=== PATIENT | male | born 1935 | race Caucasian/White ===

== ENCOUNTER 2021-05-04 18:13 | Observation (INO) ==
[2021-05-04] MEDS ORDERED: TXA 10% Non-IV Routes 100 MG/ML VIAL TOP ONE ×2 (19:51→22:17)
--- NOTE | 2021-05-04 19:55 | Emergency Department Note ---
Impression & Plan Rectal bleeding, Coagulopathy, Anal tear ED Provider Note NAME: Nancy SCHWARTZ AGE: 86 SEX: M : 1935 ARRIVES VIA: Walk-In INFORMANT: [Patient] ED PROVIDER(S): [Jefferson Arroyo MD] CHIEF COMPLAINT: Rectal bleeding HISTORY OF PRESENT ILLNESS: The patient is an 86-year-old male who presents to the ED with bright red rectal bleeding since this morning at around 1130. He has had just over 8 hours of bleeding. The patient states that he had a bowel movement and on the bowel movement, there was a streak of blood. Afterwards, he has had this bleeding. He has bloodied several of his underwear. He is not lightheaded, he is not short of breath, he is not weak. He does take Xarelto and, he took his dose this morning before all this began. He takes Xarelto once a day. He has no history of previous rectal bleeding. REVIEW OF SYSTEMS: See HPI for pertinent positives and negatives. A total of 6 systems were reviewed and were otherwise negative. PMHx/PSHx: See Below SOCIAL HISTORY: See Below. PHYSICAL EXAM: GENERAL: Patient is in no acute distress. ABDOMEN: Soft, nontender, bowel sounds positive, no hernias, no peritonitis. EXTREMITIES: No cyanosis, mild bilateral pedal edema, full range of motion of all the joints without pain or difficulty, no signs for acute trauma. NEUROLOGIC: Oriented x 3, no acute motor or sensory deficits, no focal weakness. Rectal: The patient has an anal tear at around the 2 o'clock position. This is oozing bright red blood. DIFFERENTIAL DIAGNOSIS: Coagulopathy, anemia, hemorrhoid, anal tear, polyp, gastritis, ulcer, diverticular bleeding, among others. EMERGENCY DEPARTMENT COURSE/PROCEDURES: Laceration repair: This procedure was performed by me. The wound was prepped and draped in sterile fashion. The area was anesthetized with lidocaine. Using the best sterile technique we could achieve given the location of the injury, the wound was closed. There were no complications. 4 x 4's were placed as packing to help with bleeding. The patient tolerated the procedure well. Number of sutures: 1 MEDICAL DECISION MAKING: The patient presents with rectal bleeding. On exam, he had an obvious anal tear at around the 2 o'clock position. This area was continually bleeding. I did attempt to stop the bleeding with TXA. TXA packing was attempted twice but, the bleeding continued. I talked to the patient about trying a suture in the area of the anal tear, he agreed. This procedure was performed as above. Despite the suture, the bleeding continued. At this point, I do think the patient would be best served with a hospital stay and observation. Basically, we need to wait until his Xarelto wears off. I do not feel safe with discharge home. I did apply some packing to the area to prevent any heavier bleeding. As long as the packing is in place, as long as he is not moving, he does well. Any movement or any removal of the packing causes him to rebleed. I did order some baseline laboratory testing, this is pending. A saline lock was placed. A Covid test was ordered and is pending. I did speak with case management, the on-call hospitalist was consulted. Past Med/Surg History Medical History (Updated 05/04/21 @ 23:46 by Jefferson Arroyo MD) Abnormal gait Blood clot in vein (~2012) BPH loc w/o ur obs/LUTS BPPV (benign paroxysmal positional vertigo) CVA (cerebral vascular accident) (~2012) H/O nonmelanoma skin cancer Hearing loss in left ear (~1988) HTN (hypertension) TMJ (temporomandibular joint syndrome) Surgical History History of appendectomy History of cataract surgery both eyes History of foot surgery left foot - heal spars History of repair of right rotator cuff Family History Father Cancer Mother Heart disease Brother Gallbladder disease Other Family history non-contributory Denies family history of Ovarian cancer Prostate cancer Diabetes Myocardial infarction Breast cancer Lung cancer Colorectal cancer Hypertension Stroke Social History Smoking Status: Never smoker Second Hand Exposure: No; Hx Alcohol Use: Yes Alcohol type: hard liquor Alcohol Intake Frequency Comment: everyday Hx Substance Use: No Preferred Language: Argentine Communication Ability: Effective Visual Impairment: Limited Hearing Ability: Hard of Hearing Appliance Servicer Required: No marital status: Current Living Situation: Spouse current occupational status: retired How many Children do You have: 3 Feels Safe at Home: Yes Childhood Exposure to Second-Hand Smoke: Yes caffeine: Yes (drinks tea and soda ) Dental Care, Regularly: Yes Physical Activity Frequency: Daily Physical Activity Frequency Comment: walks daily Seatbelt Use: always Sunscreen Use: No Allergies Allergies Allergy/AdvReac Type Severity Reaction Status Date / Time No Known Allergies Allergy Verified 05/04/21 20:15 Home Meds Home Medications Medication Instructions Recorded Confirmed aspirin 81 mg tablet,delayed 81 mg PO QAM 01/15/19 05/04/21 release (Aspirin Low Dose) Previous Rx's Medication Instructions Recorded rivaroxaban 20 mg tablet (Xarelto) 20 mg PO QAM #90 tab 01/13/21 tamsulosin 0.4 mg capsule 0.4 mg PO QAM #90 cap 01/16/21 atorvastatin 10 mg tablet (Lipitor) 10 mg PO QAM #90 tab 01/28/21 omeprazole 20 mg capsule,delayed 20 mg PO QAM #30 cap 01/28/21 release lisinopril 30 mg tablet 30 mg PO DAILY #90 tab 02/26/21 meclizine 12.5 mg tablet 12.5 mg PO TID PRN #20 tab 04/01/21 Results & Data (ED) Vital Signs Vital Signs - 24 hr 05/04/21 18:24 05/04/21 21:03 Temperature 36.5 C Temperature Source Temporal Artery Scan Pulse Rate 77 Pulse Rate [Apical] 60 Respiratory Rate 18 20 Respiratory Effort / Characteristics Non-Labored Respiratory Depth Normal Blood Pressure 165/85 H Blood Pressure [Right Arm] 166/102 H Blood Pressure Mean 111 Blood Pressure Mean [Right Arm] 123 Pulse Oximetry 96 98 Oxygen Delivery Method Room Air Room Air Sepsis Recent Fever Within 48 Hours No Sepsis New/Unexplained Change in Mental Status No Sepsis Action Taken by Nursing No Action Required Home Medications Current Medication List: was personally reviewed by me Administered Medications Discontinued Medications Lidocaine HCl (Xylocaine 1%/Sod Bicarb 20 Ml Vial) 20 ml INFIL NOW ONE Stop: 05/04/21 21:48 Last Admin: 05/04/21 22:26 Dose: 20 ml Documented by: [id number] Tranexamic Acid (Txa 10% Non-Iv Routes 100 Mg/Ml Vial) 1,000 mg TOP ONE ONE Stop: 05/04/21 19:52 Last Admin: 05/04/21 20:07 Dose: 1,000 mg Documented by: [id number] Tranexamic Acid (Txa 10% Non-Iv Routes 100 Mg/Ml Vial) 1,000 mg TOP ONE ONE Stop: 05/04/21 22:18 Last Admin: 05/04/21 22:26 Dose: 1,000 mg Documented by: [id number] Discharge Plan Visit Data Chief Complaint: Rectal Bleed Stated Complaint: BLEEDING FROM RECTUM SINCE THIS MORNING ED Provider: Jefferson Arroyo Discharge Problem: Rectal bleeding, Coagulopathy, Anal tear Patient Disposition: Admitted As Inpatient Condition: Good Forms Stand Alone Forms: [facility] Prescriptions Prescriptions: No Action Xarelto 20 mg tablet 20 mg PO QAM Qty: 90 RF: 3 tamsulosin 0.4 mg capsule 0.4 mg PO QAM Qty: 90 RF: 3 lisinopril 30 mg tablet 30 mg PO DAILY Qty: 90 RF: 3 atorvastatin [Lipitor] 10 mg tablet 10 mg PO QAM Qty: 90 RF: 3 omeprazole 20 mg capsule,delayed release(DR/EC) 20 mg PO QAM Qty: 30 RF: 5 aspirin [Aspirin Low Dose] 81 mg Tablet,Delayed Release (Dr/Ec) 81 mg PO QAM RF: 0 meclizine 12.5 mg tablet 12.5 mg PO TID PRN (Reason: dizziness) Qty: 20 RF: 0 Referrals Referrals: Alex Frost DO [Primary Care Provider] -
[2021-05-04] MEDS ORDERED: XYLOCAINE 1%/SOD BICARB 20 ML VIAL INFIL ONE (21:47)
--- NOTE | 2021-05-04 23:18 | History & Physical Report ---
Date of Service May 04, 2021 Assessment & Plan (1) Anal tear: Plan: Patient is an 86 year old male with PMHx CVA 2012, GERD, HTN who presents with history of rectal bleed after a large bowel movement earlier this morning that has refused to stop, patient notes that he is on eliquis and ASA daily for history of CVA. Anal Tear/Fissure with bleed -Multiple attempts at stopping bleed in ED -While pressure held, bleed appears well controlled -Will hold ASA and Eliquis at this time -Continue pressure on the tear -Colace BID sched ordered - recommend continuing some form of bowel regiment outpatient -Once bleeding has resolved, can consider topical nifedipine or nitroglycerin -Consider sitz baths or home bidets as well to prevent future tears -Hgb stable 15.4 GERD -Continue omeprazole HTN -Continue Lisinopril Dispo: Med/Surg for management of bleed FEN: Regular diet DVT: Holding anticoagulation eliquis at this time Code: Full History of Present Illness Chief Complaint: rectal bleeding Primary Care Provider: Alex Frost, Patient is an 86 year old male with PMHx CVA 2012, GERD, HTN who presents with history of rectal bleed after a large bowel movement earlier this morning that has refused to stop, patient notes that he is on eliquis and ASA daily for history of CVA. Patient notes that this morning around 11:30AM he had a large bowel movement and has been noticing bleeding from his rectum since. He notes that he has gone through roughly 6 pairs of underwear due to the bleed despite pressure. Patient presented to the ED where pressure was held, pressure with TXA was conducted, and a stitch with Vicryl was placed for a small tear in the 2 o'clock position of the anal mucosa with continued bleed. When pressure is placed the bleed pauses, however, resumes again once the patient moves around. Currently patient notes that he has no symptoms other than the bleeding. He denies any NVD, shortness of breath, chest pain, chest pressure, abdominal pain, headache, dizziness. Med Hx: CVA, GERD, HTN Surg Hx Appendectomy, Cataract Soc Hx: Denies tobacco or illicit drug use. Notes drinking 3oz of vodka daily (very specific about sipping and not taking a shot) Allergies Allergy/AdvReac Type Severity Reaction Status Date / Time No Known Allergies Allergy Verified 05/07/21 11:07 Home Medications Medication Instructions Recorded Confirmed Type aspirin 81 mg tablet,delayed 81 mg PO QAM 01/15/19 05/07/21 History release (Aspirin Low Dose) rivaroxaban 20 mg tablet (Xarelto) 20 mg PO QAM #90 tab 01/13/21 05/07/21 Rx tamsulosin 0.4 mg capsule 0.4 mg PO QAM #90 cap 01/16/21 05/07/21 Rx atorvastatin 10 mg tablet (Lipitor) 10 mg PO QAM #90 tab 01/28/21 05/07/21 Rx omeprazole 20 mg capsule,delayed 20 mg PO QAM #30 cap 01/28/21 05/07/21 Rx release lisinopril 30 mg tablet 30 mg PO DAILY #90 tab 02/26/21 05/07/21 Rx meclizine 12.5 mg tablet 12.5 mg PO TID PRN #20 tab 04/01/21 05/07/21 Rx docusate sodium 100 mg capsule 100 mg PO BID #60 cap 05/05/21 05/07/21 Rx Past Med/Surg History Medical History Abnormal gait Blood clot in vein (~2012) BPH loc w/o ur obs/LUTS BPPV (benign paroxysmal positional vertigo) CVA (cerebral vascular accident) (~2012) H/O nonmelanoma skin cancer Hearing loss in left ear (~1988) HTN (hypertension) TMJ (temporomandibular joint syndrome) Surgical History History of appendectomy History of cataract surgery both eyes History of foot surgery left foot - heal spars History of repair of right rotator cuff Family History Father Cancer Mother Heart disease Brother Gallbladder disease Other Family history non-contributory Denies family history of Ovarian cancer Prostate cancer Diabetes Myocardial infarction Breast cancer Lung cancer Colorectal cancer Hypertension Stroke Social History Smoking Status: Never smoker Second Hand Exposure: No; Hx Alcohol Use: Yes Alcohol type: hard liquor Alcohol Intake Frequency Comment: everyday Hx Substance Use: No Preferred Language: Indonesian Communication Ability: Effective Visual Impairment: Limited Hearing Ability: Hard of Hearing Field Operator Required: No Beliefs That Will Affect Care: None marital status: Current Living Situation: Spouse current occupational status: retired How many Children do You have: 3 Feels Safe at Home: Yes Childhood Exposure to Second-Hand Smoke: Yes caffeine: Yes (drinks tea and soda ) Dental Care, Regularly: Yes Physical Activity Frequency: Daily Physical Activity Frequency Comment: walks daily Seatbelt Use: always Sunscreen Use: No Assistive Devices: None Review of Systems Review of Systems: All systems reviewed & are unremarkable except as noted in Subjective Physical Exam Constitutional: well developed, well nourished and cooperative; no acute distress Eyes: PERRL, conjunctivae normal, anicteric sclerae ENMT: external ear and nose normal, oropharynx normal Neck: trachea midline, no thyromegaly Respiratory: normal respiratory effort; no cough Auscultation: lungs clear to auscultation bilaterally; no diminished lung sounds, no crackles, no rales and no wheezes Cardiovascular: Rate/Rhythm: regular rate and regular rhythm Heart Sounds: normal S1 and normal S2; no murmur and no cardiac rub Vessels: no JVD Extremities: no calf tenderness and no edema Gastrointestinal (Abdomen): Inspection/Auscultation: abdomen normal to inspection and normal bowel sounds; abdomen not distended Percussi on/Palpation: abdomen soft; abdomen nontender, no guarding and abdomen not rigid Musculoskeletal: no cyanosis or clubbing, extremities motor strength 5/5 Head/Neck/Chest: normocephalic and head atraumatic Skin: no rashes, warm and dry Psychiatric: A+Ox3, euthymic affect Lymphatic: Small tear in the anal mucosa at the 2 o'clock position with gentle ooze of bright red blood Results & Data Results & Data ([facility]) Vital Signs (Past 12 Hours) Vital Signs Temp Pulse Pulse Resp BP BP Pulse Ox 05/04/21 21:03 60 20 166/102 H 98 05/04/21 18:24 36.5 C 77 18 165/85 H 96 Supervising Physician Co-Signing Physician Notes Attending addendum: I have physically seen this patient, have supervised the medical residents activities, and agree with the H&P unless as otherwise noted. Assessment and Plan: Anal tear- Rectal bleeding on Xarelto Unsuccessful attempts by ED to control bleeding Hold aspirin and Eliquis Continue local pressure on tear Colace twice daily N.p.o. except medications Serial H&H's Surgical consult if persists GERD- Continue omeprazole/pantoprazole Remaining orders and notations as noted Resident Activity Tracking Resident Involvement: Resident Care Provided Care Provided: Adult Hospital Medicine
[2021-05-04 23:52] LABS: Hematocrit (blood only) 45.2 % (42-52); Hemoglobin 15.4 g/dL (14.0-18.0); Mean Corpuscular Hemoglobin 31.6 pg (25-34); Mean Corpuscular Hgb Conc 34.1 g/dL (32-36); Mean Corpuscular Volume 92.8 fL (80-100); Mean Platelet Volume 9.6 fL (7.4-10.4); Platelet Count 164 K/uL (130-400); RDW Coefficient of Variation 13.6 % (11.5-14.5); RDW Standard Deviation 46.2 fL (36.4-46.3); Red Blood Count 4.87 M/uL (4.7-6.1); White Blood Count 7.25 K/uL (4.8-10.8)
[2021-05-05 00:08] LABS: INR 1.1 (0.9-1.1); Partial Thromboplastin Ratio 1.2; Partial Thromboplastin Time 32.3 Seconds (21.0-31.0); Prothrombin Time 11.5 Seconds (9.0-12.0)
[2021-05-05 00:14] LABS: BUN Creatinine Ratio 11.8 (10-20); Calcium 8.5 mg/dl (8.5-10.1); Creatinine Clr Calc Pharmacy 37.8 ml/min; Est GFR (African American) 54.7 ml/min; Est GFR (Non-African American) 47.2 ml/min; Potassium 3.7 mmol/L (3.5-5.1)
[2021-05-05 06:06] LABS: Basophils # (auto) 0.04 K/uL (0-0.2); Basophils % (auto) 0.6 %; Eosinophils # (auto) 0.24 K/uL (0-0.5); Eosinophils % (auto) 3.8 %; Hematocrit (blood only) 38.4 % (42-52); Immature Granulocytes # (auto) 0.01 K/uL (0.00-0.02); Immature Granulocytes % (auto) 0.2 %; Lymphocytes # (auto) 1.48 K/uL (1.2-3.4); Lymphocytes % (auto) 23.6 %; Mean Corpuscular Hemoglobin 31.2 pg (25-34); Mean Corpuscular Hgb Conc 33.9 g/dL (32-36); Mean Corpuscular Volume 92.1 fL (80-100); Mean Platelet Volume 9.2 fL (7.4-10.4); Monocytes % (auto) 11.2 %; Neutrophils % (auto) 60.6 %; Platelet Count 134 K/uL (130-400); RDW Coefficient of Variation 13.7 % (11.5-14.5); RDW Standard Deviation 46.1 fL (36.4-46.3); Red Blood Count 4.17 M/uL (4.7-6.1); White Blood Count 6.27 K/uL (4.8-10.8)
[2021-05-05] MEDS ORDERED: TAMSULOSIN HCL 0.4 MG CAP PO SCH (09:00)
[2021-05-05] MEDS ORDERED: PANTOprazole 40 MG TAB PO SCH (09:00)
[2021-05-05] MEDS ORDERED: ATORVASTATIN 10 MG TAB PO SCH (09:00)
[2021-05-05] MEDS ORDERED: DOCUSATE SODIUM 100 MG CAP PO SCH (09:00)
[2021-05-05] MEDS ORDERED: lisinopril 10 MG TAB PO SCH (09:00)
--- NOTE | 2021-05-05 09:06 | Hospitalist Progress Note ---
Date of Service May 05, 2021 Assessment & Plan (1) Anal tear: Plan: Patient is an 86 year old male with PMHx CVA 2013, GERD, HTN who presents with history of rectal bleed after a large bowel movement earlier this morning that has refused to stop, patient notes that he is on eliquis and ASA daily for history of CVA. Anal Tear/Fissure with bleed -Multiple attempts at stopping bleed in ED -While pressure held, bleed appears well controlled -Will hold ASA and Eliquis at this time -Continue pressure on the tear -Colace BID sched ordered - recommend continuing some form of bowel regiment outpatient -Once bleeding has resolved, can consider topical nifedipine or nitroglycerin -Consider sitz baths or home bidets as well to prevent future tears -Hgb stable 15.4 DVT: Holding anticoagulation eliquis at this time Code: Full (2) BPH loc w/o ur obs/LUTS: (3) GERD (gastroesophageal reflux disease): Plan: continues on ppi (4) CVA (cerebral vascular accident): Plan: secondary risk reduction with aspirin and atorvastatin,aspirin held (5) HTN (hypertension): Plan: continues on lisinopril (6) Blood clot in vein: Plan: correction anticoagulation with xarelto Admission and Anticipated Discharge Date Admission Date: May 04, 2021 Results & Data Results & Data ([facility]) Vital Signs (Past 12 Hours) Vital Signs Temp Pulse Pulse Pulse Pulse Resp BP 05/05/21 07:50 98.1 F 55 L 20 05/05/21 01:57 98.4 F 60 17 05/05/21 01:00 60 147/69 H 05/05/21 00:06 151/73 H 05/04/21 21:03 60 20 BP Pulse Ox 05/05/21 07:50 138/82 98 05/05/21 01:57 166/88 H 97 05/05/21 01:00 96 05/05/21 00:06 96 05/04/21 21:03 166/102 H 98 PG Care Time/CCT Total # of Minutes Spent Total Time Spent with Patient: Total time spent is greater than 50% in coordi nation of care (as documented) at patient's floor/unit and/or counseling patient: Coding Diagnoses Anal tear S31.831A BPH loc w/o ur obs/LUTS N40.0 GERD (gastroesophageal reflux disease) K21.9 CVA (cerebral vascular accident) I63.9 HTN (hypertension) I10 Blood clot in vein I82.90
--- NOTE | 2021-05-05 18:02 | Discharge Summary ---
Date of Service May 05, 2021 Admission HPI Per Admitting Provider Patient is an 86 year old male with PMHx CVA 2012, GERD, HTN who presents with history of rectal bleed after a large bowel movement earlier this morning that has refused to stop, patient notes that he is on eliquis and ASA daily for history of CVA. Patient notes that this morning around 11:30AM he had a large bowel movement and has been noticing bleeding from his rectum since. He notes that he has gone through roughly 6 pairs of underwear due to the bleed despite pressure. Patient presented to the ED where pressure was held, pressure with TXA was conducted, and a stitch with Vicryl was placed for a small tear in the 2 o'clock position of the anal mucosa with continued bleed. When pressure is placed the bleed pauses, however, resumes again once the patient moves around. Currently patient notes that he has no symptoms other than the bleeding. He denies any NVD, shortness of breath, chest pain, chest pressure, abdominal pain, headache, dizziness. Med Hx: CVA, GERD, HTN Surg Hx Appendectomy, Cataract Soc Hx: Denies tobacco or illicit drug use. Notes drinking 3oz of vodka daily (very specific about sipping and not taking a shot) Principal Diagnosis rectal bleeding Discharge Exam The patient appeared well Vital signs as documented. Lungs are clear to auscultation and appear unlabored Cardiac exam, Rhythm is regular.. No murmurs, rubs or gallops. Abdominal exam reveals normal bowel sounds, soft non tender, no masses Rectal inspection shows hemostasis Extremities are nonedematous and both pedal pulses are normal. Neurologic exam is alert and oriented, no focal loss of strength or sensation Skin is without bruises or rashes Psychologically is without concerns for anxiety or depression. Discharge Data Allergies Allergy/AdvReac Type Severity Reaction Status Date / Time No Known Allergies Allergy Verified 05/04/21 20:15 Consultations 05/04/21 22:50 ED Decision to Admit Stat Hospital Course (1) Anal tear: Patient is an 86 year old male with PMHx CVA 2012, GERD, HTN who presents with history of rectal bleed after a large bowel movement earlier this morning that has refused to stop, patient notes that he is on eliquis and ASA daily for history of CVA. Anal Tear/Fissure with bleed -Multiple attempts at stopping bleed in ED -Will hold ASA and Eliquis for additional 48 hours -Colace BID sched ordered - recommend continuing some form of bowel regiment outpatient -Consider sitz baths or home bidets as well to prevent future tears -Hgb stable DVT: Holding anticoagulation eliquis at this time Code: Full (2) BPH loc w/o ur obs/LUTS: (3) GERD (gastroesophageal reflux disease): continues on ppi (4) CVA (cerebral vascular accident): secondary risk reduction with aspirin and atorvastatin,aspirin held (5) HTN (hypertension): continues on lisinopril (6) Blood clot in vein: shelter anticoagulation with xarelto Total Time Total Time Spent Total Time Spent (In Minutes): It required greater than 30 minutes to prepare this patient for discharge, all questions answered at bedside Discharge Plan Discharge Items Patient Disposition: Home - Self-Care Reason For Visit: ANAL FISSURE WITH UNCONTROLLABLE BLEED Discharge Diagnosis: anal fissure or tear with bleeding Condition on Discharge: Good Activity: Resume your previous activity Non-emergency contact: Primary Care Provider Call non-emergency contact if: you have any medication questions and your symptoms worsen Follow-up/Referrals: Alex Frost, [Primary Care Provider] - Diet: Regular Addtl Attending Provider Instructions: you have been diagnosed with bleeding that may have been caused by a hard or large stool, please use a stool softener that you can get over the counter, such as bisacodyl or even Metamucil or Citrucel hold your aspirin and Xarelto for an additional 2 days consider discussion your Xarelto with your primary care doctor to see if they recommend that you continue to take it Follow up with Dr Velázquez office this week Pending Studies at Discharge: No Stand-Alone Forms: My [facility] [employer], Smoking Cessation Medications and DC Order Prescriptions: New docusate sodium 100 mg Capsule 100 mg PO BID Qty: 60 RF: 0 Continued Xarelto 20 mg tablet 20 mg PO QAM Qty: 90 RF: 3 tamsulosin 0.4 mg capsule 0.4 mg PO QAM Qty: 90 RF: 3 lisinopril 30 mg tablet 30 mg PO DAILY Qty: 90 RF: 3 atorvastatin [Lipitor] 10 mg tablet 10 mg PO QAM Qty: 90 RF: 3 omeprazole 20 mg capsule,delayed release(/EC) 20 mg PO QAM Qty: 30 RF: 5 aspirin [Aspirin Low Dose] 81 mg Tablet,Delayed Release (Dr/Ec) 81 mg PO QAM RF: 0 meclizine 12.5 mg tablet 12.5 mg PO TID PRN (Reason: dizziness) Qty: 20 RF: 0 Discharge Orders: Discharge Order (Routine); Ordered 05/05/21 Ordered By: Alfredo Gandhi Admission Data Admit Date/Time: 05/04/21 23:22 Attending Provider: Alfredo Gandhi Admit Provider: Alfredo Pelaez Primary Care Provider: Alex Frost Other Providers: Hiren Morales Other Interventions: Discharge Summary Assessment (RN) Last Done: 05/05/21 10:57 Coding Level of Care Code D/C DAY MANAGEMENT >30 MINS Diagnoses Anal tear S31.831A BPH loc w/o ur obs/LUTS N40.0 GERD (gastroesophageal reflux disease) K21.9 CVA (cerebral vascular accident) I63.9 HTN (hypertension) I10 Blood clot in vein I82.90
--- NOTE | 2021-05-10 10:43 | Billing Data ---
Date of Service May 10, 2021 Coding Level of Care Code INT OBSERVATION CARE 70M LVL 3
--- NOTE | 2021-05-19 13:14 | Coding Query ---
LENGTH OF LACERATION To promote full compliance with coding requirements relating to patient care, physician participation is requested in all cases of coordinator of genetic services uncertainty. Please assist us with the question(s) below: Please document the length of the (coordinator of genetic services edit site) laceration. Please type the length in cm within the parenthesis () below. ANAL laceration is (0.5) cm. Thank you for your assistance, Ivelisse Rodriguez - Resident Inspector [email or web address]
== END 2021-05-05 11:20 | disposition home or self-care (01) ==
LOC: 3N 18:13 → ED 18:13 → SUATTDRO 23:22 → 3N 05-05 01:37

== ENCOUNTER 2024-07-12 09:18 | Observation (INO) ==
--- NOTE | 2024-07-12 09:30 | Emergency Department Note ---
Impression & Plan Stroke-like symptom, Abnormal gait, Pressure in head ED Provider Note NAME: KELLEY SCHWARTZ AGE: 89 SEX: M : 1935 ARRIVES VIA: Ambulance INFORMANT: Patient, EMS ED PROVIDER(S): Audi Sainz DO CHIEF COMPLAINT: Head pressure HPI: The patient is an 89-year-old male who presented to the emergency department for evaluation of head pressure. The patient notices frontal head pressure that began this morning around 8 AM. He denies having any weakness in the arms or legs. He denies having any nausea or vomiting. The patient states he felt dizzy and off-balance but this has since resolved. He denies having any fever or chills. He said no sick exposures as far as he knows. ROS: See above HPI for pertinent positives & negatives. A total of 10 systems reviewed and were otherwise negative. PAST MEDICAL HISTORY: See Below PAST SURGICAL HISTORY: See Below FAMILY HISTORY: See Below SOCIAL HISTORY: See Below HOME MEDICATIONS: See Below ALLERGIES: See Below VITALS: See Below PHYSICAL EXAMINATION: GENERAL: Patient is awake alert in no acute distress patient is resting comfortably and showing no signs of anxiety EYES: The conjunctivae are clear. The pupils are round and reactive. EARS, NOSE, MOUTH AND THROAT: The nose is without any evidence of any deformity. NECK: The neck is nontender and supple. RESPIRATORY: Normal respiratory effort is noted there is no evidence of wheezing rhonchi or rales CARDIOVASCULAR: Regular rate and rhythm noted there no murmurs rubs or gallops normal S1 normal S2. GASTROINTESTINAL: The abdomen is soft. Abdomen is nontender. MUSCULOSKELETAL/EXTREMITIES: There is no evidence of gross deformity full range of motion is noted in the hips and shoulders. SKIN: There is no obvious evidence of any rash. There are no petechiae, pallor or cyanosis noted. NEUROLOGIC: Patient is awake alert and oriented x3. Manager Completions strength is symmetric. There is no facial droop. There is no nystagmus. Patient had difficulty ambulating and appeared to have ataxia with falling to the right. MEDICAL DECISION MAKING: The patient is an 89-year-old male who presented to the emergency department for an evaluation of head pressure. The patient is a history of similar episode in the past with stroke. The patient did not have any other significant focal neurologic deficits. He did complain of some left facial numbness. The patient did have some ataxia. I discussed the patient's laboratory and radiographic studies with him. The patient was made a stroke alert. He was not a candidate for TNK because of his medication history. He has no signs of large vessel occlusion. I discussed his condition with the telestroke neurologist from [facility]. The patient was evaluated using the stroke cart. I discussed his condition with the [facility] hospitalist. They have agreed to evaluate the patient in the emergency department for further management and disposition. Triage Nursing notes reviewed. Prior medical records reviewed Vital Signs: reviewed and remarkable for no significant abnormalities Differential diagnosis: Benign positional vertigo, dehydration, hypovolemia, anemia, tumor, infection, hypoglycemia, electrolyte abnormalities, cardiac sources, intracerebral event, toxicologic, neurologic, as well as other pathologies. ER treatment provided: See below Diagnostics interpreted by me: ECG: EKG was obtained in the emergency department. My interpretation is sinus bradycardia at 55 bpm. There were no PVCs noted. Nonspecific T wave abnormalities were noted in the apical and lateral leads. This was compared to a tracing from April 05, 2023. No changes were noted. Cardiac Monitoring: An order was placed for continuous cardiac monitoring. The monitor shows a rate of 53 bpm with sinus bradycardia. Laboratory studies: As stated above and show below. Imaging studies: See below. Radiographic imaging was reviewed by myself Consultation(s): I discussed this case with Dr. Miller who is on for telestroke neurology. I discussed this case with Dr. Soriano who is on-call for the [facility] hospitalist group. 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 Insomnia Folate deficiency GERD (gastroesophageal reflux disease) BPH loc w/o ur obs/LUTS Abnormal gait (Acute) Balance disorder Medical History Abnormal ECG 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 Chronic vertigo BPPV (benign paroxysmal positional vertigo) Syncopal episodes H/O nonmelanoma skin cancer Blood clot in vein (~2012) CVA (cerebral vascular accident) (~2012) TMJ (temporomandibular joint syndrome) Hearing loss in left ear (~1988) Surgical History History of surgery on wrist History of hand surgery "finger" History of repair of right rotator cuff History of foot surgery left foot - heal spars History of cataract surgery both eyes History of appendectomy Family History Father Cancer Mother Heart disease Brother Gallbladder disease Other Family history non-contributory Denies family history of Ovarian cancer Prostate cancer Diabetes Myocardial infarction Breast cancer Lung cancer Colorectal cancer Hypertension Stroke Social History Smoking Status: Never smoker Second Hand Exposure: No; Do You Dip or Chew Tobacco: No; Hx Alcohol Use: Yes Alcohol type: hard liquor Alcohol Intake Frequency Comment: 2-3 per day Hx Substance Use: No Preferred Language: Polish Communication Ability: Effective Visual Impairment: Limited Hearing Ability: Hard of Hearing Manager Of Customer Billing Required: No Beliefs That Will Affect Care: None marital status: Current Living Situation: Spouse current occupational status: retired How many Children do You have: 3 Feels Safe at Home: Yes Childhood Exposure to Second-Hand Smoke: Yes Diet: regular caffeine: Yes (drinks tea and soda ) during the past year weight has: remained stable Dental Care, Regularly: Yes Physical Activity Frequency: Daily Physical Activity Frequency Comment: walks daily Seatbelt Use: always Sunscreen Use: No Assistive Devices: Glasses Allergies Allergies Allergy/AdvReac Type Severity Reaction Status Date / Time No Known Allergies Allergy Verified 05/25/24 10:20 Home Meds Home Medications Medication Instructions Recorded Confirmed aspirin 81 mg tablet,delayed 81 mg PO QAM 01/15/19 05/25/24 release (Nikko Low Dose Aspirin) folic acid 1 mg tablet 1 mg PO DAILY 07/27/23 05/25/24 cholecalciferol (vitamin D3) 25 25 mcg PO DAILY 11/22/23 05/25/24 mcg (1,000 unit) capsule Previous Rx's Medication Instructions Recorded apixaban 5 mg tablet 5 mg PO BID #180 tabs 12/28/23 finasteride 5 mg tablet 5 mg PO DAILY #90 tabs 02/15/24 lisinopril 20 mg tablet 20 mg PO DAILY #90 tabs 03/06/24 hydrochlorothiazide 12.5 mg tablet 12.5 mg PO DAILY #90 tabs 03/21/24 atorvastatin 10 mg tablet (Lipitor) 10 mg PO QAM #90 tabs 05/15/24 nitrofurantoin 100 mg PO Q12H 5 days #10 caps 06/09/24 monohydrate/macrocrystals 100 mg capsule (Macrobid) tamsulosin 0.4 mg capsule 0.4 mg PO QAM #90 caps 07/03/24 Results & Data (ED) Vital Signs Vital Signs - 24 hr 07/12/24 09:38 07/12/24 09:38 07/12/24 09:45 Temperature 36.5 C 36.5 C Temperature Source Oral Oral Pulse Rate 54 L 54 L Pulse Rate [Apical] 54 L Pulse Rate from SpO2 Sensor Pulse Rhythm Regular Regular Pulse Rhythm [Apical] Regular Pulse Strength Normal Pulse Strength [Apical] Normal Respiratory Rate 20 20 20 Respiratory Effort / Characteristics Non-Labored Spontaneous Non-Labored Spontaneous Respiratory Depth Normal Normal Respiratory Pattern Regular Regular Blood Pressure 136/67 Blood Pressure [Left Arm] 136/67 Blood Pressure Mean 90 Blood Pressure Mean [Left Arm] 90 Blood Pressure Position Semi-fowlers Blood Pressure Position [Left Arm] Semi-fowlers Pulse Oximetry 96 96 96 Oxygen Delivery Method Room Air Room Air Room Air Sepsis Recent Fever Within 48 Hours No Sepsis New/Unexplained Change in Mental Status No Sepsis Action Taken by Nursing No Action Required 07/12/24 09:54 07/12/24 10:09 07/12/24 10:27 Temperature Temperature Source Pulse Rate 60 57 L 53 L Pulse Rate [Apical] Pulse Rate from SpO2 Sensor 60 57 L Pulse Rhythm Pulse Rhythm [Apical] Pulse Strength Pulse Strength [Apical] Respiratory Rate 15 14 Respiratory Effort / Characteristics Respiratory Depth Respiratory Pattern Blood Pressure 148/71 H Blood Pressure [Left Arm] Blood Pressure Mean 96 Blood Pressure Mean [Left Arm] Blood Pressure Position Blood Pressure Position [Left Arm] Pulse Oximetry 100 98 Oxygen Delivery Method Room Air Room Air Sepsis Recent Fever Within 48 Hours Sepsis New/Unexplained Change in Mental Status Sepsis Action Taken by Nursing 07/12/24 10:37 Temperature Temperature Source Pulse Rate Pulse Rate [Apical] 53 L Pulse Rate from SpO2 Sensor Pulse Rhythm Pulse Rhythm [Apical] Pulse Strength Pulse Strength [Apical] Respiratory Rate 18 Respiratory Effort / Characteristics Respiratory Depth Respiratory Pattern Blood Pressure Blood Pressure [Left Arm] 132/69 Blood Pressure Mean Blood Pressure Mean [Left Arm] 90 Blood Pressure Position Blood Pressure Position [Left Arm] Pulse Oximetry 99 Oxygen Delivery Method Room Air Sepsis Recent Fever Within 48 Hours Sepsis New/Unexplained Change in Mental Status Sepsis Action Taken by [facility] Medications Current Medication List: was personally reviewed by me Laboratory Data Attestation: I reviewed the patient's lab results. 07/12/24 09:30 07/12/24 09:30 Lab Results 07/12/24 07/12/24 Range/Units 09:30 09:50 WBC 5.17 (4.8-10.8) K/ul RBC 4.60 L (4.70-6.10) M/uL Hgb 14.2 (14.0-18.0) g/dl Hct 42.0 (42.0-52.0) % MCV 91.3 (80.0-100.0) fL MCH 30.9 (25.0-34.0) pg MCHC 33.8 (32.0-36.0) g/dL RDW Std Deviation 45.0 (36.4-46.3) fL RDW Coeff of Jeffery 13.4 (11.5-14.5) % Plt Count 156 (130-400) K/uL MPV 10.1 (9.4-12.4) fL Immature Gran % (Auto) 0.6 % Neut % (Auto) 61.9 % Lymph % (Auto) 22.6 % [place] % (Auto) 11.8 % Eos % (Auto) 2.1 % Baso % (Auto) 1.0 % Neut # (Auto) 3.20 (1.40-6.50) K/uL Lymph # (Auto) 1.17 L (1.20-3.40) K/uL [place] # (Auto) 0.61 H (0.11-0.59) K/uL Eos # (Auto) 0.11 (0.00-0.50) K/uL Baso # (Auto) 0.05 (0.00-0.20) K/uL Immature Gran # (Auto) 0.03 (0.01-0.20) K/uL PT 11.1 (9.0-12.0) Seconds INR 1.0 (0.9-1.1) APTT 27 (21-31) Seconds PTT Ratio 1.0 Sodium 141 (136-145) mmol/L Potassium 4.0 (3.5-5.1) mmol/L Chloride 105 (98-107) mmol/L Carbon Dioxide 29 (21-32) mmol/L Anion Gap 7 (3-11) BUN 18 (6-23) mg/dl Creatinine 1.35 (0.6-1.4) mg/dl Est Cr Clr Drug Dosing 35.9 ml/min eGFR 50.19 BUN/Creatinine Ratio 13.3 (10-20) Glucose 148 H (70-99(Fasting)) mg/dl Calcium 9.2 (8.6-10.3) mg/dl Magnesium 1.9 (1.7-2.4) mg/dl Total Bilirubin 2.2 H (0.2-1.0) mg/dl AST 14 (13-39) U/L ALT 16 (7-52) U/L Alkaline Phosphatase 58 (34-104) U/L Total Creatine Kinase 40 (30-223) U/L Troponin I High Sens 6.0 (0-20) pg/ml Total Protein 6.4 (6.0-8.3) gm/dl Albumin 3.9 (3.4-5.0) gm/dl Globulin 2.5 (2.5-4.0) gm/dl Albumin/Globulin Ratio 1.6 (0.9-2) TSH 1.204 (0.300-4.500) uIu/ml SARS-CoV-2 (PCR) NEGATIVE (Negative) Influenza Type A (PCR) Negative (Neg) Influenza Type B (PCR) Negative (Neg) RSV (RT-PCR) Negative (Neg) Administered Medications Discontinued Medications Ioversol (Optiray 320 125ml) 120 ml IV ONCE ONE Stop: 07/12/24 09:53 Last Admin: 07/12/24 09:52 Dose: 120 ml Documented By: LEONA Imaging Data Attestation: I personally reviewed and interpreted this imaging study as follows: My Impression: 1 view chest x-ray was obtained in the emergency department. My interpretation is no free air or definite infiltrate, final report below. CT the brain was obtained in the emergency department. My interpretation is no intracranial hemorrhage or mass effect, final report below. Radiologist's Impression: Chest X-Ray 07/12/24 09:25 XR chest 1V portable CLINICAL HISTORY: weakness COMPARISON STUDY: No previous studies for comparison. FINDINGS: Lung volumes are normal. Lungs are clear. There is no pneumothorax or pleural effusion. The heart is mildly enlarged. Right paratracheal prominence is due to vasculature. There is no evidence for pulmonary edema. IMPRESSION: No acute cardiopulmonary findings. ACT 112: Negative or not required by law. Electronically signed by: Moses Jones M.D. 07/12/2024 9:[address] 07/12/24 09:25 CT OF THE HEAD WITHOUT CONTRAST CLINICAL HISTORY: Dizziness. COMPARISON STUDY: Head CT April 05, 2023. TECHNIQUE: Helical axial images of the head were obtained without IV contrast. Automated exposure control was utilized for the study. A dose lowering technique was utilized adhering to the principles of ALARA. FINDINGS: No acute intracranial hemorrhage, midline shift or mass effect is present. The ventricular system is stable. Atrophy with prominence of the extra- axial spaces is unchanged. The basal cisterns are patent. No extra-axial collections are present. There are no findings to suggest acute dural sinus thrombosis or acute territorial infarct. No significant calvarial abnormalities are present. Visualized portions of the sinuses and mastoid air cells are clear. IMPRESSION: No acute intracranial findings. No change in appearance of the brain. ACT 112: Negative or not required by law. Electronically signed by: Moses Jones M.D. 07/12/2024 9:59 AM Head CTA 07/12/24 09:34 CTA ANGIOGRAPHY OF THE HEAD CLINICAL HISTORY: Dizzy. COMPARISON STUDY: CTA of the head April 05, 2023. TECHNIQUE: Helical axial images of the head were obtained following uneventful intravenous administration of 120 cc of Optiray. Sagittal and coronal reconstructions were viewed as well as maximal intensity projections on an independent 3-D workstation. Automated exposure control was utilized for the study. A dose lowering technique was utilized adhering to the principles of ALARA. FINDINGS: No acute intracranial hemorrhage, midline shift or mass effect is present. Ventricular system is stable. Basal cisterns are patent. The bilateral M1, M2, A1 and A2 segments are patent. There is moderate calcified plaque within the bilateral cavernous carotids which results in moderate stenosis of the right cavernous carotid. No large vessel occlusion is identified. The left vertebral artery is dominant. Basilar and posterior cerebral arteries are patent. Moderate stenosis of the right posterior cerebral artery is unchanged. IMPRESSION: 1. No large vessel occlusion. No intracranial aneurysm. 2. No change since CT of April 05, 2023. Moderate stenosis of the right posterior cerebral artery and right cavernous carotid. ACT 112: Negative or not required by law. Electronically signed by: Moses Jones M.D. 07/12/2024 10:14 AM Neck CTA 07/12/24 09:34 CT angio neck with con CLINICAL HISTORY: 89 years-old Male with dizzy. Acute dizziness COMPARISON STUDY: 04/05/2023 TECHNIQUE: Following the IV administration of 1 20 mL of Optiray, CT angiogram of the neck was performed from the aortic arch to the skull base. Images are reviewed in the axial, sagittal, and coronal planes. 3-D MIPS images are created and assessed. IV contrast was administered without complication. All measurements were calculated based on NASCET criteria. A dose lowering technique was utilized adhering to the principles of ALARA. CT DOSE: 1115.64 mGy.cm FINDINGS: Mild atherosclerosis of the thoracic aortic arch. There is patency of the innominate and image subclavian arteries. Common carotid arteries are patent. Atherosclerosis of the carotid bulbs, left greater than right. Again, this results in less than 50% stenosis bilaterally. Atherosclerotic plaque results in a unchanged high-grade stenosis at the origin of the left vertebral artery. The left vertebral artery is dominant. High-grade stenosis at the origin of the right vertebral artery is also unchanged. Lung apices are clear without pneumothorax. Unremarkable soft tissues. No acute fracture. Degenerative changes of the cervical spine. IMPRESSION: 1. Unchanged high-grade stenosis at the origin of the vertebral arteries secondary to calcified plaque. 2. Atherosclerosis of the left greater than right carotid bulbs redemonstrated without high-grade stenosis. 3. No aneurysm, dissection or arterial occlusion. ACT 112: Negative or not required by law. The above report was generated using voice recognition software. It may contain grammatical, syntax or spelling errors. Electronically signed by: Umberto Lee M.D. 07/12/2024 10:19 AM Discharge Plan Visit Data Chief Complaint: Head Pain Stated Complaint: HEAD PRESSURE ED Provider: Audi Sainz Discharge Problem: Stroke-like symptom, Abnormal gait, Pressure in head Patient Disposition: Being Evaluated by Hospitalist Forms Stand Alone Forms: My [facility] Prescriptions Prescriptions: No Action lisinopril 20 mg tablet 20 mg PO DAILY Qty: 90 3RF hydrochlorothiazide 12.5 mg tablet 12.5 mg PO DAILY Qty: 90 3RF atorvastatin [Lipitor] 10 mg tablet 10 mg PO QAM Qty: 90 3RF nitrofurantoin monohyd/m-cryst [Macrobid] 100 mg capsule 100 mg PO Q12H 5 Days Qty: 10 0RF Rx Instructions: must administer with a meal/food tamsulosin 0.4 mg capsule 0.4 mg PO QAM Qty: 90 3RF folic acid 1 mg tablet 1 mg PO DAILY apixaban 5 mg tablet 5 mg PO BID Qty: 180 3RF finasteride 5 mg tablet 5 mg PO DAILY Qty: 90 3RF cholecalciferol (vitamin D3) 25 mcg (1,000 unit) capsule 25 mcg PO DAILY aspirin [Nikko Low Dose Aspirin] 81 mg Tablet,Delayed Release (Dr/Ec) 81 mg PO QAM Referrals Referrals: Alex Frost DO [Primary Care Provider] -
[2024-07-12 09:48] LABS: Basophils # (auto) 0.05 K/uL (0.00-0.20); Eosinophils # (auto) 0.11 K/uL (0.00-0.50); Eosinophils % (auto) 2.1 %; Hemoglobin 14.2 g/dl (14.0-18.0); Immature Granulocytes # (auto) 0.03 K/uL (0.01-0.20); Immature Granulocytes % (auto) 0.6 %; Lymphocytes # (auto) 1.17 K/uL (1.20-3.40); Lymphocytes % (auto) 22.6 %; Mean Corpuscular Hemoglobin 30.9 pg (25.0-34.0); Mean Corpuscular Hgb Conc 33.8 g/dL (32.0-36.0); Mean Corpuscular Volume 91.3 fL (80.0-100.0); Mean Platelet Volume 10.1 fL (9.4-12.4); Monocytes # (auto) 0.61 K/uL (0.11-0.59); Monocytes % (auto) 11.8 %; Neutrophils % (auto) 61.9 %; Platelet Count 156 K/uL (130-400); RDW Coefficient of Variation 13.4 % (11.5-14.5); White Blood Count 5.17 K/ul (4.8-10.8)
[2024-07-12] MEDS: OPTIRAY 320 125ml IV ONE (09:52)
--- NOTE | 2024-07-12 09:57 | XRay Report ---
XR chest 1V portable CLINICAL HISTORY: weakness COMPARISON STUDY: No previous studies for comparison. FINDINGS: Lung volumes are normal. Lungs are clear. There is no pneumothorax or pleural effusion. The heart is mildly enlarged. Right paratracheal prominence is due to vasculature. There is no evidence for pulmonary edema. IMPRESSION: No acute cardiopulmonary findings. ACT 112: Negative or not required by law. Electronically signed by: Moses Jones M.D. 07/12/2024 9:56 AM
--- NOTE | 2024-07-12 10:02 | CT Scan Report ---
CT OF THE HEAD WITHOUT CONTRAST CLINICAL HISTORY: Dizziness. COMPARISON STUDY: Head CT April 05, 2023. TECHNIQUE: Helical axial images of the head were obtained without IV contrast. Automated exposure con trol was utilized for the study. A dose lowering technique was utilized adhering to the principles o f ALARA. FINDINGS: No acute intracranial hemorrhage, midline shift or mass effect is present. The ventricular system is stable. Atrophy with prominence of the extra-axial spaces is unchanged. The basal cisterns are patent. No extra-axial collections are present. There are no findings to suggest acute dural sinu s thrombosis or acute territorial infarct. No significant calvarial abnormalities are present. Visual ized portions of the sinuses and mastoid air cells are clear. IMPRESSION: No acute intracranial findings. No change in appearance of the brain. ACT 112: Negative or not required by law. Electronically signed by: Moses Jones M.D. 07/12/2024 9:59 AM
[2024-07-12 10:05] LABS: Albumin Globulin Ratio 1.6 (0.9-2); Albumin Level 3.9 gm/dl (3.4-5.0); BUN Creatinine Ratio 13.3 (10-20); Bilirubin,Total 2.2 mg/dl (0.2-1.0); Calcium 9.2 mg/dl (8.6-10.3); Creatinine Clr Calc Pharmacy 35.9 ml/min; Globulin 2.5 gm/dl (2.5-4.0); Magnesium 1.9 mg/dl (1.7-2.4); Total Protein 6.4 gm/dl (6.0-8.3)
[2024-07-12 10:14] LABS: Partial Thromboplastin Time 27 Seconds (21-31); Prothrombin Time 11.1 Seconds (9.0-12.0)
--- NOTE | 2024-07-12 10:17 | CT Scan Report ---
CTA ANGIOGRAPHY OF THE HEAD CLINICAL HISTORY: Dizzy. COMPARISON STUDY: CTA of the head April 05, 2023. TECHNIQUE: Helical axial images of the head were obtained following uneventful intravenous administr ation of 120 cc of Optiray. Sagittal and coronal reconstructions were viewed as well as maximal inten sity projections on an independent 3-D workstation. Automated exposure control was utilized for the study. A dose lowering technique was utilized adhering to the principles of ALARA. FINDINGS: No acute intracranial hemorrhage, midline shift or mass effect is present. Ventricular syst em is stable. Basal cisterns are patent. The bilateral M1, M2, A1 and A2 segments are patent. There i s moderate calcified plaque within the bilateral cavernous carotids which results in moderate stenosi s of the right cavernous carotid. No large vessel occlusion is identified. The left vertebral artery is dominant. Basilar and posterior cerebral arteries are patent. Moderate stenosis of the right poste rior cerebral artery is unchanged. IMPRESSION: 1. No large vessel occlusion. No intracranial aneurysm. 2. No change since CT of April 05, 2023. Moderate stenosis of the right posterior cerebral artery and right cavernous carotid. ACT 112: Negative or not required by law. Electronically signed by: Moses Jones M.D. 07/12/2024 10:14 AM
[2024-07-12 10:20] LABS: Thyroid Stimulating Hormone 1.204 uIu/ml (0.300-4.500)
--- NOTE | 2024-07-12 10:21 | CT Scan Report ---
CT angio neck with con CLINICAL HISTORY: 89 years-old Male with dizzy. Acute dizziness COMPARISON STUDY: 04/05/2023 TECHNIQUE: Following the IV administration of 1 20 mL of Optiray, CT angiogram of the neck was perfor med from the aortic arch to the skull base. Images are reviewed in the axial, sagittal, and coronal p lanes. 3-D MIPS images are created and assessed. IV contrast was administered without complication. A ll measurements were calculated based on NASCET criteria. A dose lowering technique was utilized adh ering to the principles of ALARA. CT DOSE: 1115.64 mGy.cm FINDINGS: Mild atherosclerosis of the thoracic aortic arch. There is patency of the innominate and image subcla vian arteries. Common carotid arteries are patent. Atherosclerosis of the carotid bulbs, left greater than right. Again, this results in less than 50% stenosis bilaterally. Atherosclerotic plaque result s in a unchanged high-grade stenosis at the origin of the left vertebral artery. The left vertebral a rtery is dominant. High-grade stenosis at the origin of the right vertebral artery is also unchanged. Lung apices are clear without pneumothorax. Unremarkable soft tissues. No acute fracture. Degenerativ e changes of the cervical spine. IMPRESSION: 1. Unchanged high-grade stenosis at the origin of the vertebral arteries secondary to calcified plaqu e. 2. Atherosclerosis of the left greater than right carotid bulbs redemonstrated without high-grade charlie nosis. 3. No aneurysm, dissection or arterial occlusion. ACT 112: Negative or not required by law. The above report was generated using voice recognition software. It may contain grammatical, syntax o r spelling errors. Electronically signed by: Umberto Lee M.D. 07/12/2024 10:19 AM
[2024-07-12 10:37] LABS: Influenza A virus by PCR Negative (Neg); Influenza B virus by PCR Negative (Neg); RSV by PCR Negative (Neg); SARS CoV2 RNA(COVID-19) Ceph NEGATIVE (Negative)
--- NOTE | 2024-07-12 10:51 | History & Physical Report ---
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), CVA in 2012, HLD, vertebral aa stenosis - on noncompliant x 1 week on Eliquis (Only taking AM dose) presented with head pressure and ataxia - CT and CTA head negative - neck CTA showed unchanged high-grade stenosis of vertebral arteries along with atherosclerosis of left and right carotid bulbs - Recent echo 06/26/24 showed normal biventricular systolic function, moderate LVH, borderline left atrial dilation, mild aortic stenosis - continue home Eliquis BID, atorvastatin 10 mg, and baby aspirin - Telemetry monitoring - Q4H neuro checks - MRI pending - A1C and lipid panel with AM labs - PT/OT to evaluate (2) Alcohol use disorder, moderate, dependence: Plan: Typically drinks 4-6 ounces; last drink 07/10 - no symptoms of withdrawal on admission - AWSS protocol - Thiamine IM 100 on admission, 100 PO QAM scheduled - Folic acid PO QAM - at risk protocol - although unlikely to need pharmacologic Tx - Folate, B12, B1 levels pending (3) Elevated bilirubin: Plan: Chronic - gilbert syndrome? - 2.2 on admission (B/L 1.8-2.0) - daily CMP (4) BPH loc w/o ur obs/LUTS: Plan: - Continue home medications - flomax and finasteride - bladder scan prn - monitor for urinary retention (5) HTN (hypertension): Plan: stable - can continue home BP meds in AM - HCTZ and lisinopril Plan Chronic stable diagnoses: HLD - continue statin Insomnia - melatonin prn VTE ppx: Continue Eliquis Diet: heart healthy Code status: DNR/DNI Dispo: med/tele; PT/OT to evaluate - likely to discharge 07/13 Admission and Anticipated Discharge Date Admission Date: 07/12/24 History of Present Illness Chief Complaint: head pain Primary Care Provider: Alex Frost DO Patient is an 89-year-old male with a past medical history of hypertension, hyperlipidemia, 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 He presents today due to head pressure. he stated that this morning he was sitting on the floor sorting through old records and felt a sudden onset mild left sided head pressure. He was concerned given his history of stroke. He then tried to stand up from the floor and had difficulty, he stated he normally would not have difficulty with this. He is a very active man who walks 2 miles a day. He stated that he has been out of town for the past 7 to 9 days and has only been taking his a.m. dose of Eliquis due to convenience. He also has a history of alcohol use disorder, his last drink was 2 days ago, he decided he wants to quit. He went through an 86-day stretch of sobriety recently, he began drinking again because of life stressors. His is currently in the hospital. He drinks 4 to 6 ounces of whiskey per night. He denies history of withdrawal symptoms during the previous stretch, denies withdrawal symptoms today on admission. He does not drink any water at home, only Coca-Cola and whiskey. Patient endorses 1 episode of diarrhea yesterday, along with a cough and rhinor jamila. Patient denies fever, chills, dizziness, lightheadedness, vision changes, sore throat, dyspnea, dyspnea on exertion, chest pain, abdominal pain, nausea, vomiting, constipation, dysuria, hematuria, edema, numbness, tingling. He lives at home with his , his daughter checks on him daily. They have 14 steps in the home. He took all of his home medications this morning. He wishes to be DNR/DNI at this time. Patient's daughter updated at bedside. Allergies Allergy/AdvReac Type Severity Reaction Status Date / Time No Known Allergies Allergy Verified 07/12/24 12:17 Home Medications Medication Instructions Recorded Confirmed Type aspirin 81 mg tablet,delayed 81 mg PO QAM 01/15/19 07/12/24 History release (Nikko Low Dose Aspirin) cholecalciferol (vitamin D3) 25 25 mcg PO DAILY 11/22/23 07/12/24 History mcg (1,000 unit) capsule apixaban 5 mg tablet 5 mg PO BID #180 tabs 12/28/23 07/12/24 Rx finasteride 5 mg tablet 5 mg PO DAILY #90 tabs 02/15/24 07/12/24 Rx lisinopril 20 mg tablet 20 mg PO DAILY #90 tabs 03/06/24 07/12/24 Rx hydrochlorothiazide 12.5 mg tablet 12.5 mg PO DAILY #90 tabs 03/21/24 07/12/24 Rx atorvastatin 10 mg tablet (Lipitor) 10 mg PO QAM #90 tabs 05/15/24 07/12/24 Rx tamsulosin 0.4 mg capsule 0.4 mg PO QAM #90 caps 07/03/24 07/12/24 Rx Past Med/Surg History Problem List (Updated 07/12/24 @ 11:02 by Marisa Trevino PA-C) Elevated bilirubin Pressure in head (Acute) Stroke-like symptom (Acute) Elevated serum creatinine Urinary frequency Elevated PSA Alcohol use disorder, moderate, dependence Elevated hemoglobin A1c HTN (hypertension) Mild aortic stenosis Chronic anticoagulation Vertebral artery stenosis Dyslipidemia 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 Insomnia Folate deficiency GERD (gastroesophageal reflux disease) BPH loc w/o ur obs/LUTS Abnormal gait (Acute) Balance disorder Medical History Abnormal ECG 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 Chronic vertigo BPPV (benign paroxysmal positional vertigo) Syncopal episodes H/O nonmelanoma skin cancer Blood clot in vein (~2012) CVA (cerebral vascular accident) (~2012) TMJ (temporomandibular joint syndrome) Hearing loss in left ear (~1988) Surgical History History of surgery on wrist History of hand surgery "finger" History of repair of right rotator cuff History of foot surgery left foot - heal spars History of cataract surgery both eyes History of appendectomy Family History Father Cancer Mother Heart disease Brother Gallbladder disease Other Family history non-contributory Denies family history of Ovarian cancer Prostate cancer Diabetes Myocardial infarction Breast cancer Lung cancer Colorectal cancer Hypertension Stroke Social History Smoking Status: Never smoker Second Hand Exposure: No; Do You Dip or Chew Tobacco: No; Hx Alcohol Use: Yes Alcohol type: hard liquor Alcohol Intake Frequency Comment: 2-3 per day Hx Substance Use: No Preferred Language: Frisian Communication Ability: Effective Visual Impairment: Limited Hearing Ability: Hard of Hearing Log Tumbler Required: No Beliefs That Will Affect Care: None marital status: Current Living Situation: Spouse current occupational status: retired How many Children do You have: 3 Feels Safe at Home: Yes Safety Concerns: Feels Safe At This Time Childhood Exposure to Second-Hand Smoke: Yes Diet: regular caffeine: Yes (drinks tea and soda ) during the past year weight has: remained stable Dental Care, Regularly: Yes Physical Activity Frequency: Daily Physical Activity Frequency Comment: walks daily Seatbelt Use: always Sunscreen Use: No Assistive Devices: None Review of Systems Review of Systems: see HPI Physical Exam Physical Exam: The patient is awake, alert and oriented 3, well developed and well nourished, normocephalic and atraumatic, in no acute distress. Non-toxic appearing. HEENT- EOMI, mucous membranes moist. Hearing grossly intact. Heart-normal S1 and S2. No murmurs, rubs or gallops. Lungs-clear bilaterally, no respiratory distress, no accessory muscle use. Abdomen-normal bowel sounds and soft. No ascites noted. Non-tender. Extremities- no clubbing, cyanosis, or edema. Rheumatologic-normal range of motion. Psychiatric-normal affect. Musculoskeletal: no cyanosis or clubbing, extremities motor strength 5/5 Neurologic: PERRL, EOMI, accommodation nl, no face palsy, no dysarthria CN's II-XI intact bilaterally; no focal motor deficits Speech / Cognition: normal speech Results & Data Results & Data Vital Signs (Past 12 Hours) Vital Signs Temp Pulse Pulse Resp BP BP Pulse Ox 07/12/24 10:37 53 L 18 132/69 99 07/12/24 10:27 53 L 07/12/24 10:09 57 L 14 148/71 H 98 07/12/24 09:54 60 15 100 07/12/24 09:45 54 L 20 96 07/12/24 09:38 36.5 C 54 L 20 136/67 96 07/12/24 09:38 36.5 C 54 L 20 136/67 96 O2 Del Method 07/12/24 10:37 Room Air 07/12/24 10:27 07/12/24 10:09 Room Air 07/12/24 09:54 Room Air 07/12/24 09:45 Room Air 07/12/24 09:38 Room Air 07/12/24 09:38 Room Air Code Status & VTE Plan Code Status DNR/DNI VTE Prophylaxis Plan VTE Prophylaxis will be ordered: Yes Supervising Physician Co-Signing Physician Notes I personally saw and examined the patient. I independently reviewed the labs, EKG, imaging, problem list, medication list, past medical history and family history. I verified all pagan points and agree with Marisa Trevino PA-C with the following exceptions and/or additions: 89 year old male presents to the ER with sudden onset ataxia and left sided head pressure similar to his prior stroke 10 years previously. Occurred while sitting on the floor sorting papers earlier this morning. Last known well 8am. O/E CN2-> 12 intact, no pronator drift, no extremity weakness or loss of sensation, HS RRR, no murmurs, Chest CTAB, Abdo SNT A/P Stroke-like symptoms - Not TNK candidate jonna to Eliquis use. Brain MRI, PT/OT, HbA1C and lipid panel with AM labs. PG Care Time/CCT Total # of Minutes Spent Total Time Spent with Patient: Total time spent is greater than 50% in coordination of care (as documented) at patient's floor/unit and/or counseling patient: Coding Level of Care Code 75083 INT INP/OBS CARE 3/75MIN Diagnoses Stroke-like symptom R29.90 Alcohol use disorder, moderate, dependence F10.20 Elevated bilirubin R17 BPH loc w/o ur obs/LUTS N40.0 HTN (hypertension) I10
[2024-07-12 12:36] LABS: Appearance Urine Clear (Clear); Bilirubin Urine Negative (Negative); Blood Urine Negative (Negative); Color Urine Yellow; Glucose Urine UA Negative (Negative); Ketones Urine Negative (Negative); Leukocyte Esterase Urine Negative (Negative); Nitrite Urine Negative (Negative); Protein Urine Negative (Negative); Specific Gravity Urine 1.045 (1.000-1.030); Urobilinogen Urine Negative (Negative)
[2024-07-12] MEDS: GADOBUTROL 65ML VIAL IV ONE (12:49)
--- NOTE | 2024-07-12 13:22 | Magnetic Resonance Report ---
MR brain wo/w con HISTORY: 89 years-old Male head pressure, ataxia acute headache with dizziness COMPARISON: CT head, CTA head and neck studies of same day TECHNIQUE: Multiplanar multisequence MRI of the brain was obtained with and without IV contrast FINDINGS: No restricted diffusion. The pituitary appears prominent for age, however no discrete sellar or supra sellar mass identified. No acute intracranial hemorrhage, midline shift, abnormal extra axial collect ion, hydrocephalus or intra-axial mass. Punctate focus of blooming artifact noted within the left cer ebellum on image 7 series 7, suggestive of hemosiderin. Involutional changes with moderate to extensi ve T2/FLAIR hyperintense foci throughout the white matter. Chronic left cerebellar infarcts. Cerebral venous sinuses and major arterial flow voids appear patent. Prior bilateral lens repair. The skull and soft tissues are unremarkable. Paranasal sinuses and mastoid air cells appear clear. Mild leftward bowing and spurring of the nasal septum. No abnormal enhancement. IMPRESSION: 1. No acute intracranial abnormality. No acute or subacute infarct. 2. Involutional changes with chronic microvascular ischemic disease. 3. Chronic left cerebellar infarcts. ACT 112: Negative or not required by law. The above report was generated using voice recognition software. It may contain grammatical, syntax o r spelling errors. Electronically signed by: Umberto Lee M.D. 07/12/2024 1:20 PM
[2024-07-12 15:22] LABS: Folate (Folic Acid),Ser orPlas > 22.30 ng/ml (>5.38)
[2024-07-12 15:23] LABS: Vitamin B12 > 1500 pg/ml (180-914)
[2024-07-12] MEDS ORDERED: LORazepam 2 MG/1 ML VIAL IV PRN (15:38)
[2024-07-12] MEDS ORDERED: ACETAMINOPHEN 325 MG TAB PO PRN (15:38)
[2024-07-12] MEDS ORDERED: DOCUSATE SODIUM 100 MG CAP PO PRN (15:38)
[2024-07-12] MEDS ORDERED: THIAMINE HCL 100 MG/ML 2 ML VIAL IM STA (15:38)
[2024-07-12] MEDS: THIAMINE HCL 100 MG/ML 2 ML VIAL IM STA (16:05)
[2024-07-12] MEDS: APIXABAN 5 MG TABLET PO SCH (20:24)
--- NOTE | 2024-07-13 06:42 | Hospitalist Progress Note ---
Date of Service July 13, 2024 Assessment & Plan (1) Stroke-like symptom: (2) Elevated bilirubin: (3) Vertebral artery stenosis: Plan #Stroke-like symptom: Likely TIA Imaging( CT head, CTA : Not suggestive of acute stroke(no H'ge, no ischemia) - Neck CTA: unchanged high-grade stenosis of vertebral arteries - Echo 06/26/24: No significant predisposing finding - MRI: No acute intracranial changes, Chronic left cerebellar infarct. - Tele: [facility] consulted -Eliquis 5mg BID, Atorvastatin 10 mg -Stops Aspirin once Eliquis is started #Orthostasis - BP Meds Hydrochlorothiazide held - Encourage PO Intake #Alcohol use disorder, moderate, dependence: Last drink 07/10 AWSS: Normal - Thiamine 100 PO/ Folic acid QAM - Folate/ B12: WNL # BPH with mild LUTS in past - Under flomax and finasteride : Continue - Hematuria in this AM: Urine persistent with hematuria - Cystoscopy(07/03): NAD #HTN (hypertension): Stable : BP 137/62 this AM. Continue home meds: Lisinopril Plan Chronic stable diagnoses: HLD - continue statin Insomnia - melatonin prn VTE ppx: Continue Eliquis Dispo: PT recommends he can return home after discharge Admission and Anticipated Discharge Date Admission Date: July 12, 2024 Supervising Physician Co-Signing Physician Notes Attending Physician Supervision Note: I independently interviewed and examined the patient and verified the pagan history and physical, reviewed labs and image studies and agree with findings and care plan noted above. 89 y/o with h/o CVA Presented with left faith pressure sensation similar to when he had stroke. This morning symptoms resolved. Had hematuria earlier today - passed some clots. urine clearing afterwards. Dizzi with standing up. vitals noted nad heent nc at mmm breathing unlabored no accessory muscles good effort skin no rashes no pallor or icterus neuro no focal deficits. No focal deficit Positive orthostatics. Probable TIA vs episodic ischemia due to orthostatic hypotension in setting of high grade bilateral vertebral A stenosis. -continue eliquis, statin. -BP management as below. Orthostatic hypotension - On tamsulosin and finasteride. -Will allow higher BP - hold hctz. -consider midodrine Hematuria - since this am. Clear UA last night on admission. recent cystoscopy 07/03 - normal. Urology had no plans for further work up. -bleeding likely from underlying BPH. -since improving will follow. AUD - last drink 4 days ago. No h/o withdrawal with quitting. Monitor overnight. Subjective 89-year-old male with P/M/H of HTN, Dyslipidemia, Alcohol Use disorder, Vertebral Artery Stenosis, Mild admitted for evaluation of Stroke after he presented to ED with pressure on left side of head. He explains he never have headache at baseline, yesterday he felt that pressure all of sudden in left side of frontal headache. He felt little dizzi and felt off balance for while but resolved spontaneously once he rested. No nausea, vomiting, fever, weakness, blurring of vision, SOB, chest pain. No sweating, LOC. He mentions about H/O blood clots and stroke in past. Today morning he says he is fine with headache, no new weakness, can walk ar ound, sleep decent, ate normally, normal bowel habit. However mentioned about blood in urine since this AM. He says yesterday his urine was clear, little yellow but not bloody. This AM he passed grossly bloody urine and tip of penis stings abnormally to him. No fever, increased frequency of micturition, no dribbling or straining in micturition. Says he regularly visits his PCP, no issue with bladder or prostrate that he is aware of in past. Review of Systems Review of Systems: As per HPI Physical Exam Physical Exam: Constitutional: Well appearing, No acute distress, pale looking HEENT: Atraumatic, Normocephalic, No conjunctival injection CVS: S1 S2 no murmur, Regular Rhythm, no LE edema Respiratory: BL equal air entry with NVBS. No rhonchi, wheezes, or crackles. No increased work of breathing GI: Soft, Nondistended, Nontender, no suprapubic tenderness, Normal Bowel sounds + MSK: No gross deformities noted, Muscle power 5/5 in BL UL and LL Genital exam: Minimal old blood on penile tip, no active bleeding, no active lesion externally. Skin: Warm, Dry, No rashes Neuro: Alert, Oriented to TPP, No Focal deficit, Intact CN II-XII Psych: Mood and Affect congruent, Cooperative on exam Results & Data Results & Data Vital Signs (Past 12 Hours) Vital Signs Temp Pulse Pulse Resp BP Pulse Ox O2 Del Method 07/13/24 03:40 36.5 C 57 L 18 128/73 95 Room Air 07/12/24 23:11 36.5 C 56 L 18 135/68 96 Room Air 07/12/24 21:41 46 L 07/12/24 19:00 36.4 C L 51 L 18 145/73 H 97 Room Air Resident Activity Tracking Resident Involvement: Resident Care Provided Care Provided: Adult Hospital Medicine
[2024-07-13 07:10] LABS: Hematocrit (blood only) 41.3 % (42.0-52.0); Hemoglobin 13.9 g/dl (14.0-18.0); Mean Corpuscular Hemoglobin 30.2 pg (25.0-34.0); Mean Corpuscular Hgb Conc 33.7 g/dL (32.0-36.0); Mean Corpuscular Volume 89.6 fL (80.0-100.0); Mean Platelet Volume 10.1 fL (9.4-12.4); Platelet Count 146 K/uL (130-400); RDW Coefficient of Variation 13.2 % (11.5-14.5); RDW Standard Deviation 43.4 fL (36.4-46.3); Red Blood Count 4.61 M/uL (4.70-6.10); White Blood Count 5.53 K/ul (4.8-10.8)
[2024-07-13 07:26] LABS: Albumin Globulin Ratio 1.5 (0.9-2); Albumin Level 3.5 gm/dl (3.4-5.0); BUN Creatinine Ratio 12.5 (10-20); Bilirubin,Total 2.4 mg/dl (0.2-1.0); Calcium 8.9 mg/dl (8.6-10.3); Chol HDL Ratio 3.5 (0-5); Creatinine Clr Calc Pharmacy 32.7 ml/min; Globulin 2.3 gm/dl (2.5-4.0); Total Protein 5.8 gm/dl (6.0-8.3)
[2024-07-13 07:52] LABS: Estimated Average Glucose 126 mg/dl
[2024-07-13] MEDS: ASPIRIN 81 MG ECTAB PO SCH (08:45)
[2024-07-13] MEDS: ATORVASTATIN 10 MG TAB PO SCH (08:45)
[2024-07-13] MEDS: hydroCHLOROthiazide 25 MG TAB PO SCH (08:46)
[2024-07-13] MEDS: CHOLECALCIFEROL 25 MCG (1000 UNITS) TAB PO SCH (08:46)
[2024-07-13] MEDS: FOLIC ACID 1 MG TAB PO SCH (08:46)
[2024-07-13] MEDS: FINASTERIDE 5 MG TAB PO SCH (08:46)
[2024-07-13] MEDS: lisinopril 20 MG TAB PO SCH (08:47)
[2024-07-13] MEDS: TAMSULOSIN HCL 0.4 MG CAP PO SCH (08:47)
[2024-07-13] MEDS: THIAMINE HCL 100 MG TAB PO SCH (08:47)
[2024-07-13 11:42] LABS: Appearance Urine Slightly Cloudy (Clear); Bilirubin Urine Negative (Negative); Blood Urine 2+ (Negative); Color Urine Red; Glucose Urine UA Negative (Negative); Ketones Urine Negative (Negative); Leukocyte Esterase Urine Negative (Negative); Nitrite Urine Negative (Negative); Protein Urine Trace (Negative); Specific Gravity Urine 1.015 (1.000-1.030); Urobilinogen Urine Negative (Negative)
[2024-07-13 11:45] LABS: Bacteria Urine 2+ (None Seen); RBC Urine >20 /hpf (0-2)
[2024-07-13 11:46] LABS: Epithelial Cell Urine 0-2 /hpf (0-2)
--- NOTE | 2024-07-13 17:09 | Electrocardiogram Report ---
Test Reason : Blood Pressure : */* mmHG Vent. Rate : 55 BPM Atrial Rate : 55 BPM P-R Int : 172 ms QRS Dur : 78 ms QT Int : 474 ms P-R-T Axes : 24 22 193 degrees QTcB Int : 453 ms Sinus bradycardia Chronic T-wave inversion in Anterior leads Abnormal ECG When compared with ECG of 05-Apr-2023 10:55, Premature atrial complexes are no longer Present Confirmed by Zachariah Jackson ([id number]) on 07/13/2024 5:09:07 PM Referred By: REFERRED SELF Confirmed By: Zachariah Jackson
[2024-07-14 04:00] VITALS: RESP 18
[2024-07-14 05:53] LABS: Basophils # (auto) 0.03 K/uL (0.00-0.20); Basophils % (auto) 0.4 %; Eosinophils # (auto) 0.08 K/uL (0.00-0.50); Eosinophils % (auto) 1.1 %; Hematocrit (blood only) 40.5 % (42.0-52.0); Hemoglobin 13.5 g/dl (14.0-18.0); Immature Granulocytes # (auto) 0.02 K/uL (0.01-0.20); Immature Granulocytes % (auto) 0.3 %; Lymphocytes # (auto) 1.27 K/uL (1.20-3.40); Lymphocytes % (auto) 17.9 %; Mean Corpuscular Hemoglobin 30.3 pg (25.0-34.0); Mean Corpuscular Hgb Conc 33.3 g/dL (32.0-36.0); Mean Corpuscular Volume 90.8 fL (80.0-100.0); Mean Platelet Volume 10.2 fL (9.4-12.4); Monocytes % (auto) 11.3 %; Platelet Count 164 K/uL (130-400); RDW Coefficient of Variation 13.3 % (11.5-14.5); RDW Standard Deviation 44.1 fL (36.4-46.3); Red Blood Count 4.46 M/uL (4.70-6.10)
[2024-07-14 06:05] LABS: BUN Creatinine Ratio 13.1 (10-20); Creatinine Clr Calc Pharmacy 26.8 ml/min; Potassium 4.6 mmol/L (3.5-5.1)
[2024-07-14 08:04] VITALS: O2SAT 99
[2024-07-14 11:25] VITALS: BP 112/53; TEMP 97.5
[2024-07-14 16:10] VITALS: PULSE 51
--- NOTE | 2024-07-14 17:35 | Discharge Summary ---
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 He presents today due to head pressure. he stated that this morning he was sitting on the floor sorting through old records and felt a sudden onset mild left sided head pressure. He was concerned given his history of stroke. He then tried to stand up from the floor and had difficulty, he stated he normally would not have difficulty with this. He is a very active man who walks 2 miles a day. He stated that he has been out of town for the past 7 to 9 days and has only been taking his a.m. dose of Eliquis due to convenience. He also has a history of alcohol use disorder, his last drink was 2 days ago, he decided he wants to quit. He went through an 86-day stretch of sobriety recently, he began drinking again because of life stressors. His is currently in the hospital. He drinks 4 to 6 ounces of whiskey per night. He denies history of withdrawal symptoms during the previous stretch, denies withdrawal symptoms today on admission. He does not drink any water at home, only Coca-Cola and whiskey. Patient endorses 1 episode of diarrhea yesterday, along with a cough and rhinorrhea. Patient denies fever, chills, dizziness, lightheadedness, vision changes, sore throat, dyspnea, dyspnea on exertion, chest pain, abdominal pain, nausea, vomiting, constipation, dysuria, hematuria, edema, numbness, tingling. He lives at home with his , his daughter checks on him daily. They have 14 steps in the home. He took all of his home medications this morning. He wishes to be DNR/DNI at this time. Patient's daughter updated at bedside. Admission Exam Per Admitting Provider The patient is awake, alert and oriented 3, well developed and well nourished, normocephalic and atraumatic, in no acute distress. Non-toxic appearing. HEENT- EOMI, mucous membranes moist. Hearing grossly intact. Heart-normal S1 and S2. No murmurs, rubs or gallops. Lungs-clear bilaterally, no respiratory distress, no accessory muscle use. Abdomen-normal bowel sounds and soft. No ascites noted. Non-tender. Extremities- no clubbing, cyanosis, or edema. Rheumatologic-normal range of motion. Psychiatric-normal affect. Principal Diagnosis TIA, Orthostasis, Hematuria Discharge Exam Constitutional: Well appearing, No acute distress, pale looking HEENT: Atraumatic, Normocephalic, No conjunctival injection CVS: S1 S2 no murmur, Regular Rhythm, no LE edema Respiratory: BL equal air entry with NVBS. No rhonchi, wheezes, or crackles. No increased work of breathing GI: Soft, Nondistended, Nontender, no suprapubic tenderness, Normal Bowel sounds + MSK: No gross deformities noted, Muscle power 5/5 in BL UL and LL Genital exam: Minimal old blood on penile tip, no active bleeding, no active lesion externally. Skin: Warm, Dry, No rashes Neuro: Alert, Oriented to TPP, No Focal deficit, Intact CN II-XII Psych: Mood and Affect congruent, Cooperative on exam Discharge Data Allergies Allergy/AdvReac Type Severity Reaction Status Date / Time No Known Allergies Allergy Verified 07/12/24 12:17 Consultations 07/12/24 10:51 ED Decision to Admit Stat Ordered Studies 07/12/24 09:25 CT head/brain wo con Stat 07/12/24 09:34 CT angio head w con Stat CT angio neck with con Stat 07/12/24 11:53 MRI Brain [MR brain wo/w con] Urgent Hospital Course (1) Stroke-like symptom: (2) Elevated bilirubin: (3) Vertebral artery stenosis: Plan #Stroke-like symptom: Likely TIA High-grade stenosis of vertebral arteries, no infarct on imaging -Under Eliquis 5mg BID, Atorvastatin 10 mg #Orthostasis - BP Meds Hydrochlorothiazide held - Encourage Fluid intake; conside adding Midodrine on PCP F/U #Alcohol use disorder, moderate, dependence: - No withdrawl at hospital # BPH , Hematuria -Under flomax and finasteride -Urine persistent with hematuria -Normal Cystoscopy(07/03); Urine RE: RBC >20, No signs of infection - Urology: Dr. Coto will F/U coming Wednesday at Office. #HTN (hypertension): Stable Continue Lisinopril HCTZ on hold due to orthostasis; consider restarting at PCP F/U Home BP advised Total Time Total Time Spent Total Time Spent (In Minutes): See attending's attestation Discharge Plan Discharge Items Patient Disposition: Home - Self-Care Reason For Visit: STROKELIKE SX Discharge Diagnosis: Orthostasis TIA Activity: Per Instructions section Non-emergency contact: Primary Care Provider Call non-emergency contact if: your symptoms worsen Follow-up/Referrals: Alex Frost DO [Primary Care Provider] - 07/21/24 2:45 pm Diet: Heart Healthy Addtl Attending Provider Instructions: You were admitted to the hospital for suspicion of Stroke. Your images did not show stroke however you had your blood pressure fluctuation on standing compared to sitting. Hence we stopped your water pill. You probably has transient ischemic attack. We have continued your previous Eliquis and Lipitor. You had blood running down with your urine. It was on and off. Urology Dr. Coto will follow up op in office sometime soon. A discharge summary will be sent to your primary care physician to ensure continuity of care. Please bring this discharge summary with you to your next office appointment so that your provider can review it at that time. Follow-up appointments: Make a follow-up appointment with your PCP within the next week. It is very important that you follow up with them shortly after discharge from the hospital. We have requested a follow-up appointment with your Urologist within one week of discharge. Please call Dr. Petey Coto's office if you do not hear from them. Keep all your follow-up appointments as already scheduled. If you cannot make an appointment, notify your provider. Medications: Your medication list has been reviewed and reconciled upon discharge to ensure accuracy and continuity of care. An updated list of all your medications is included with your hospital discharge paperwork. Please review this list closely, and make note of any changes. We have stoped called Hydrochlorothiazide. Consider Home measurement of your blood pressure. If its persistently higher than 140, talk to your PCP about restarting this medicine. Hydrate yourself with 5-7 classes of fluids each day. Regular exercise would help your situation as well. If you have any issues filling these prescriptions, please call [phone] and ask to leave a message for Dr. Varsha Torres. Take your medications as instructed; do not skip a dose of your medicines. Make sure all of your doctors know every medicine you are taking (including [id number]-auvjbku medicines, vitamins, and supplements). Call your primary care provider before taking any new medicines (including over- the-counter medicines, vitamins, and supplements), because some of these may interact with your current medications, or may make your symptoms worse. Tell your primary care provider if you cannot afford your medications. CONTACT YOUR PRIMARY CARE PROVIDER if you experience any of the following: Worsening of symptoms Fever, chills, or fatigue Difficulty following your treatment plan, or difficulty taking medications CALL 911 OR GO TO THE EMERGENCY DEPARTMENT if you experience any of the following: Sudden, severe abdominal pain or nausea/vomiting Severe chest pain, or chest pain that radiates (moves) to your jaw or arm Sudden, severe shortness of breath or difficulty breathing Thank you for allowing us to participate in your care Pending Studies at Discharge: No Stand-Alone Forms: My [facility] [employer], Smoking Cessation Medications and DC Order Prescriptions: Continued lisinopril 20 mg tablet 20 mg PO DAILY Qty: 90 3RF atorvastatin [Lipitor] 10 mg tablet 10 mg PO QAM Qty: 90 3RF tamsulosin 0.4 mg capsule 0.4 mg PO QAM Qty: 90 3RF apixaban 5 mg tablet 5 mg PO BID Qty: 180 3RF finasteride 5 mg tablet 5 mg PO DAILY Qty: 90 3RF cholecalciferol (vitamin D3) 25 mcg (1,000 unit) capsule 25 mcg PO DAILY Discontinued hydrochlorothiazide 12.5 mg tablet 12.5 mg PO DAILY Qty: 90 3RF Discharge Orders: Discharge Order (Routine); Ordered 07/14/24 Ordered By: Varsha Leon/Other Patient Handouts: Alcoholism Resources, Alcoholism: Getting Help Admission Data Admit Date/Time: 07/12/24 11:53 Attending Provider: Alexandra Steele Admit Provider: Deven Soriano Primary Care Provider: Alex Frost Other Providers: Deven Soriano Other Interventions: Discharge Summary Assessment (RN) Last Done: 07/14/24 16:05 Supervising Physician Co-Signing Physician Notes Attending Physician Supervision Note: I independently interviewed and examined the patient and verified the pagan history and physical, reviewed labs and image studies and agree with findings and care plan noted above. 89 y/o with h/o CVA Presented with left faith pressure sensation similar to when he had stroke. symptoms resolved day 1. No recurrence. No bleeding in am but recurred later in the day. No problem with urination. Dizzi resolved. vitals noted nad heent nc at mmm breathing unlabored no accessory muscles good effort skin no rashes no pallor or icterus neuro no focal deficits. No focal deficit Recheck Orthostatics negative Probable TIA vs episodic ischemia due to orthostatic hypotension in setting of high grade bilateral vertebral A stenosis. -continued eliquis, statin. -BP management as below. Orthostatic hypotension - On tamsulosin and finasteride. -Will allow higher BP - held hctz. -advised to check BP at home and if Systolic consistently above 140 - to resume hctz. -consider adding midodrine Hematuria - recent cystoscopy 07/03 - normal - at that time Urology had no plans for further work up. -bleeding likely from underlying BPH. -discussed with urology again - advised to follow up as outpatient. Resident Activity Tracking Resident Involvement: Resident Care Provided Care Provided: Adult Hospital Medicine
== END 2024-07-14 16:15 | disposition home or self-care (01) ==
LOC: 2N 09:18 → ED 09:18 → SUATTDRO 11:53 → 2N 15:24